=== PATIENT | female | born 1975 | race Caucasian/White ===

== ENCOUNTER 2021-09-24 12:23 | Emergency (ER) | payer OTHER ==
[2021-09-24 12:52] VITALS: BP 124/82; PULSE 87; TEMP 97.8; BMI 25.7
[2021-09-24] MEDS ORDERED: IBUPROFEN 600 MG TABLET (FP) PO ONE ×2 (14:14→14:20)
== END 2021-09-24 15:13 | disposition home or self-care (01) ==
LOC: JERFT 12:23
DX: M25.571 Pain in right ankle and joints of right foot (principal)
CPT/HCPCS: 73610-TC-RT-FY; 73630-TC-RT-FY; 99284-25